=== PATIENT | female | born 1985 | race Caucasian/White ===

== ENCOUNTER 2017-06-03 14:01 | Observation (INO) | payer MEDICAID ==
[~2017-06-03] VITALS: Ht 147.3 cm; Wt 70.8 kg
[2017-06-03] MEDS ORDERED: PREN-88 PO ×2 (14:19→15:46)
== END 2017-06-03 20:35 | disposition home or self-care (01) ==
LOC: L&D 14:01
PROVIDERS: ADMIT Specialist; ATTEND Specialist
DX: Z34.93 Encounter for supervision of normal pregnancy, unspecified, third trimester (principal); Z3A.38 38 weeks gestation of pregnancy
CPT/HCPCS: 59025; 76815; 76818; G0378

== ENCOUNTER 2019-02-10 20:04 | Emergency (ER) | payer MEDICAID ==
[~2019-02-10] VITALS: Ht 149.9 cm; Wt 58.0 kg
[2019-02-11 00:55] VITALS: BP 132/90
== END 2019-02-11 00:56 | disposition home or self-care (01) ==
LOC: ER 20:04
DX: J06.9 Acute upper respiratory infection, unspecified (principal); H92.01 Otalgia, right ear; M79.10 Myalgia, unspecified site; Z98.890 Other specified postprocedural states
CPT/HCPCS: 71045; 81025; 99283